=== PATIENT | male | born 1990 | race Caucasian/White ===

== ENCOUNTER 2017-02-24 13:53 | Inpatient (IN) | payer OTHER ==
--- NOTE | ~2017-02-24 | CT98 ---
[facility] A Service of [facility] RADIOLOGY TEXT RESULTS PATIENT: JAYDEN STEPHENS LOCATION: [address] : [birth year] UNIT #: [id number] AGE: [address]: Derrick Sol MD SEX: M ORDER DR: [id number] [facility] [address] [facility]. [place], [place] [address] [id number] I MR#: [id number] Acc #: [id number] NAME: JAYDEN STEPHENS : 1990 SEX: M STUDY DATE/TIME: 02/25/2017 12:12 UNIT: [facility] ROOM: [facility] STUDY DESCRIPTION: CT Lumbar Spine Wo Cont Attending Physician: Derrick Sol M.D. Ordering Physician: Cirstobal Vaughn M.D. Primary Care Physician: No Primary Care Physician MEDICAL IMAGING REPORT This report is preliminary unless electronic signature is present EXAM Lumbar spine CT 02/25 INDICATIONS Sepsis. Low back pain. Overdose on heroin. TECHNIQUE Axial noncontrast images were obtained through the lumbar spine. Multiplanar reformats were obtained. This CT exam was performed with one or more of the following radiation dose reduction techniques: automatic control, adjustment of mA and/or kV according to patient size, and iterative reconstruction. COMPARISON No comparison. FINDINGS The exam is quite degraded by the lack of IV contrast. No fracture or subluxation is seen. There are no erosive endplate changes seen to suggest diskitis. No intraspinal or definitive paraspinal fluid collections are identified. IMPRESSION Exam is degraded by the lack of IV contrast. However, the exam is within normal limits. No fractures are seen. No erosive changes are seen to suggest diskitis, and there are no definite adjacent fluid collections. Dictated by... Jim Aleman Jr., M.D. THIS IS AN ELECTRONICALLY VERIFIED REPORT Jim Aleman Jr., M.D. at 02/25/2017 3:55 PM RLK/rnr [facility] A Service of [facility] RADIOLOGY TEXT RESULTS PATIENT: JAYDEN STEPHENS LOCATION: [address] : [birth year] UNIT #: [id number] AGE: [address]: Derrick Sol MD SEX: M ORDER DR: TD: 02/25/2017 14:11 JOB #: [id number] MEDICAL IMAGING REPORT Page 1 of 1 COPY
--- NOTE | ~2017-02-24 | CR72 ---
[facility] A Service of [facility] RADIOLOGY TEXT RESULTS PATIENT: JAYDEN STEPHENS LOCATION: [facility] : [birth year] UNIT #: [id number] AGE: [address]: Tiara Kingston MD SEX: M ORDER DR: [id number] [facility] [address] [facility]. [place], [place] [address] [id number] E MR#: [id number] Acc #: [id number] NAME: JAYDEN STEPHENS : 1990 SEX: M STUDY DATE/TIME: 02/24/2017 16:51 UNIT: [facility] ROOM: STUDY DESCRIPTION: CR Chest Single View Portable Attending Physician: Tiara Kingston M.D. Ordering Physician: Tiara Kingston M.D. Primary Care Physician: No Primary Care Physician MEDICAL IMAGING REPORT This report is preliminary unless electronic signature is present EXAM Single view chest. HISTORY Cough, vomiting and headaches. FINDINGS Single portable AP view of the chest compared to CT abdomen and pelvis dated 02/24/2017. There are several cavitary nodules scattered throughout both lungs. These are most consistent septic emboli. There is no pneumothorax or pleural effusion. IMPRESSION Multiple cavitary nodules scattered throughout both lungs. This is most consistent with septic emboli. Please correlate with clinical symptoms. Dictated by... Loy Lara M.D. THIS IS AN ELECTRONICALLY VERIFIED REPORT Loy Lara M.D. at 02/24/2017 10:31 PM JOSSELINE/molly TD: 02/24/2017 22:08 JOB #: [id number] MEDICAL IMAGING REPORT Page 1 of 1 COPY
--- NOTE | ~2017-02-24 | CO ---
Unit #: [id number] #: [id number] Patient: FORTUNATO REDDY [id number] [address] [address] [id number] I MR#: [id number] NAME: FORTUNATO REDDY ROOM: [facility] Age: 26 Sex: M Admission Date: 02/24/2017 : 1990 Attending Physician: Derrick Sol M.D. Primary Care Physician: Maria Teresa Primary Care Physician Consultation Date: 02/25/2017 CONSULTATION REPORT REASON FOR CONSULT Renal insufficiency, acidosis. Thank you very much for asking me to see this patient in consultation. HISTORY OF PRESENT ILLNESS Mr. Fortunato Reddy is a 26-year-old male who apparently has had nausea, vomiting, fevers, joint pain x1 week. Presented here with low blood pressure, subsequently intubated. Workup showed probable septic emboli to the lungs. Echo this morning showed a large tricuspid vegetation. Patient already is growing out 2/2 gram-positive cocci in the blood. We were asked to see the patient secondary to increased creatinine of 1.6, decreased output, and acidosis. The patient has a history of polysubstance abuse and apparently IV heroin, although unsure of the exact amount. He currently is intubated on pressors, although blood pressure in the 120s. Batista catheter is in place with some mild increased urine output. PAST MEDICAL HISTORY 1. History of polysubstance abuse. 2. History of anxiety. ALLERGIES No known drug allergies. SOCIAL HISTORY Positive smoker. No alcohol apparently according to the chart and of course, positive heroin use. MEDICATIONS Medicines at home included lorazepam. Medicines currently include: 1. Vancomycin. 2. Propofol. 3. Zosyn. 4. Phenergan. 5. Solu-Cortef. 6. Lovenox. 7. Protonix. 8. He is on phenylephrine drip and he is on a bicarb drip currently. FAMILY HISTORY Noncontributory. Unit #: [id number] #: [id number] Patient: FORTUNATO REDDY PHYSICAL EXAMINATION GENERAL: Sedated. VITAL SIGNS: T-max is 99.9, pulse 81-125, blood pressure 70 to 121 over 30 to 70s. HEENT: Normocephalic and atraumatic. His pupils are equal and reactive to light. He has a little bit of sclerae edema. NECK: His neck is supple. No adenopathy. CARDIAC: He is without a rub. No S3 or S4. LUNGS: His lungs sound fairly clear anterior and laterally. ABDOMEN: Bowel sounds positive. Nontender, soft. No masses felt. No hepato-organomegaly noted. EXTREMITIES: He has no lower extremity swelling. His pulses are intact to upper and lower extremities now. JOINTS: No joint pain, joint swelling. SKIN: No acute rashes. NEUROLOGIC: Again, sedated. DIAGNOSTIC STUDIES LABORATORY: Last check showed an ABG of pH 7.293, pCO2 of 37, pO2 of 236. Sodium 137, potassium 3.6, chloride 108, bicarbonate 18, BUN 25, creatinine 1.6, glucose 74, calcium 7. Albumin 1.7. Increased liver function tests. Increased bilirubin. Lactic acid is 1.8. CPK is 11. Hemoglobin 11.8, platelet count is down to 43,000, white count is 28,3000. UA shows specific gravity of 1.022, 2-5 RBCs, 10-25 WBCs, 2+ bacteria. Blood cultures again 2/2 gram-positive cocci. IMAGING: Chest x-ray consistent with cavitary nodules. ASSESSMENT AND PLAN 1. Acute renal insufficiency: This is a gentleman who has acute renal failure, most likely related to acute tubular necrosis from hypoperfusion as well as from sepsis, endocarditis, etc. Certainly, I think he will probably worsen before he gets better. His blood pressure is improved now on pressors and IV fluids. Will continue for now. No indication for dialysis currently but if becomes significantly more acidotic or hyperkalemic or other issues with respiratory status, etc., will need to consider probably CRRT. For now, will hold off. Check labs later today. 2. Acidosis: Patient appears to have metabolic acidosis secondary to acute renal failure, sepsis, etc. Will adjust his bicarbonate drip to D5W with 3 amps of bicarb at 200 mL an hour. Will check again BMP later today and will continue to follow. 3. Tricuspid endocarditis, septic emboli, gram-positive cocci per infectious disease. 4. Respiratory failure. 5. Heroin abuser. Dictated by.Edyta Herr M.D. Peterson TD: 02/25/2017 15:04 JOB #: [id number] Unit #: [id number] #: [id number] Patient: FORTUNATO REDDY CONSULTATION REPORT Page 1 of 1 X Kolby Herr MD CONSULTATION REPORT
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
--- NOTE | ~2017-02-24 | CT4 ---
[facility] A Service of [facility] RADIOLOGY TEXT RESULTS PATIENT: JAYDEN STEPHENS [facility] [birth year] UNIT #: [id number] AGE: [address]: Derrick Sol MD SEX: M ORDER DR: [id number] [facility] [address] [facility]. [place], [place] [address] [id number] E MR#: [id number] Acc #: [id number] NAME: JAYDEN STEPHENS : 1990 SEX: M STUDY DATE/TIME: 02/24/2017 15:35 UNIT: PR[facility]ANK[facility] ROOM: STUDY DESCRIPTION: CT Abd and Pelv Wo Cont Attending Physician: Tiara Kingston M.D. Ordering Physician: Tiara Kingston M.D. Primary Care Physician: No Primary Care Physician MEDICAL IMAGING REPORT This report is preliminary unless electronic signature is present EXAM CT of the abdomen and pelvis, without contrast. HISTORY Vomiting and body aches for [address] images were obtained from the dome of the diaphragm through the symphysis pubis. No oral or intravenous contrast material was administered. This CT exam was performed with one or more of the following radiation dose reduction techniques: automatic exposure control, adjustment of mA and/or kV according to patient size, and iterative reconstruction. FINDINGS Patient is noted to have multiple cavitary nodules seen at the lung bases bilaterally. Their appearance is most characteristic of septic emboli. The patient has diffuse hepatic steatosis as well as hepatosplenomegaly. The liver measures up to 16.4 cm in craniocaudal dimensions. The spleen measures up to 14.4 cm in craniocaudal dimensions. The exam is degraded by the lack of intravenous and oral contrast material. The stomach and proximal small bowel appear unremarkable, as are the adrenal glands, pancreas, and kidneys. The gallbladder is not well seen and is probably contracted. I do not see any free fluid or adenopathy within the abdomen. There is no evidence of mechanical bowel obstruction. There is trace amount of free fluid seen within the pelvis, which certainly could be reactive. The urinary bladder is normal in appearance. The appendix is not definitively identified, but no dilated tubular structure or soft tissue stranding within the right lower quadrant to suggest acute appendicitis. Review of bony windows does not demonstrate any aggressive abnormalities. Patient does have postsurgical changes within the right femur. [facility] A Service of [facility] RADIOLOGY TEXT RESULTS PATIENT: JAYDEN STEPHENS LOCATION: [address] : [birth year] UNIT #: [id number] AGE: [address]: Derrick Sol MD SEX: M ORDER DR: IMPRESSION 1. Multiple cavitary nodules are noted at the lung bases bilaterally. The appearance is most in keeping with septic emboli. Single largest nodule measures up to 3.3 x 2.2 cm. 2. Hepatosplenomegaly. 3. Diffuse hepatic steatosis. 4. Trace free fluid identified within the pelvis, likely reactive. 5. The appendix is not definitively seen, but I do not see a dilated tubular structure or soft tissue stranding within the right lower quadrant to suggest acute appendicitis. 6. Findings were reviewed with Dr. Kingston in the Emergency Department at the time of this dictation. Dictated by... Sally Noe M.D. THIS IS AN ELECTRONICALLY VERIFIED REPORT Sally Noe M.D. at 02/26/2017 6:29 PM MARLYN/reji TD: 02/24/2017 19:22 JOB #: [id number] MEDICAL IMAGING REPORT Page 1 of 1 COPY
--- NOTE | ~2017-02-24 | CR72 ---
[facility] A Service of [facility] & [facility] RADIOLOGY TEXT RESULTS PATIENT: JAYDEN STEPHENS [facility]ATION: [facility] [birth year] UNIT #: [id number] AGE: [address]: Derrick Sol MD SEX: M ORDER DR: [id number] [address] [place], [place] [address] [id number] E MR#: [id number] Acc #: [id number] NAME: JAYDEN STEPHENS : 1990 SEX: M STUDY DATE/TIME: 02/24/2017 19:55 UNIT: [facility] ROOM: STUDY DESCRIPTION: CR Chest Single View Portable Attending Physician: Tiara Kingston M.D. Ordering Physician: Tiara Kingston M.D. Primary Care Physician: No Primary Care Physician MEDICAL IMAGING REPORT This report is preliminary unless electronic signature is present EXAM Single view chest INDICATIONS Central line placement. Shortness of air. FINDINGS Single portable AP view of the chest at 19:55 compared to 16:51. Endotracheal tube is 6 cm above the dylan. There is a right IJ central line with the tip over the SVC. No pneumothorax. Cavitary pulmonary nodules are identified in both lungs. IMPRESSION 1. Endotracheal tube 6 cm above the dylan. 2. Right IJ central line terminates over the SVC. No pneumothorax. Dictated by... Loy Lara M.D. THIS IS AN ELECTRONICALLY VERIFIED REPORT Loy Lara M.D. at 02/25/2017 3:05 PM JOSSELINE/molly TD: 02/25/2017 00:39 JOB #: [id number] MEDICAL IMAGING REPORT Page 1 of 1 COPY
--- NOTE | ~2017-02-24 | EKG ---
PATIENT: JAYDEN STEPHENS UNIT #: [id number] Ventricular Rate: 111 BPM Atrial Rate: 111 BPM P-R Interval: 140 ms QRS Duration: 92 ms Q-T Interval: 380 ms QTC Calculation(Bezet): 516 ms P Baltic: 71 degrees Calculated R Baltic: 81 degrees Calculated T Baltic: 37 degrees Diagnosis Line: Sinus tachycardia Diagnosis Line: Otherwise normal ECG Diagnosis Line: Diagnosis Line: Confirmed by MOJGAN GLORIA MD ([id number]) on 02/24/2017 Diagnosis Line: 11:43:11 PM INTERPRETING MD: FAIZAN JOINER
--- NOTE | ~2017-02-24 | CT57 ---
[facility] A Service of [facility] & [facility] RADIOLOGY TEXT RESULTS PATIENT: JAYDEN STEPHENS LOCATION: [address] : [birth year] UNIT #: [id number] AGE: [address]: Derrick Sol MD SEX: M ORDER DR: [id number] [facility] [address] [facility]. [place], [place] [address] [id number] I MR#: [id number] Acc #: [id number] NAME: JAYDEN STEPHENS : 1990 SEX: M STUDY DATE/TIME: 02/25/2017 12:09 UNIT: [facility] ROOM: [facility] STUDY DESCRIPTION: CT Chest Wo Cont Attending Physician: Derrick Sol M.D. Ordering Physician: Cristobal Vaughn M.D. Primary Care Physician: No Primary Care Physician MEDICAL IMAGING REPORT This report is preliminary unless electronic signature is present EXAM Chest CT, 02/25/2017. HISTORY Sepsis. Recent overdose on drugs. Upper and lower back pain. TECHNIQUE Axial images were obtained through the chest without contrast. Multiplanar reformats were obtained. This CT exam was performed with one or more of the following radiation dose reduction techniques: automatic exposure control, adjustment of mA and/or kV according to patient size, and iterative reconstruction. COMPARISON Comparison made with CT abdomen, 02/24/2017. FINDINGS Endotracheal tube is in good position. No pericardial effusion. There are small bilateral pleural effusions. No definite adenopathy. Right IJ line tip is in the SVC. Lung windows reveal numerous lesions bilaterally, most of which are cavitary. These are compatible with septic emboli. More confluent alveolar consolidation is noted in the lower lobes and suggests pneumonia. There are some secretions in the left main stem bronchus. The upper abdomen shows fatty infiltration of the liver. Gallbladder has an abnormal appearance, and I cannot exclude gallbladder wall edema. Follow-up with gallbladder ultrasound is recommended. IMPRESSION 1. Bilateral numerous septic emboli. 2. Small bilateral effusions. 3. Bilateral lower lobe consolidations which likely reflect pneumonia. 4. Abnormal appearance to the gallbladder, only partially visualized. I [facility] A Service of [facility] & [facility] RADIOLOGY TEXT RESULTS PATIENT: JAYDEN STEPHENS LOCATION: [address] : [birth year] UNIT #: [id number] AGE: [address]: Derrick Sol MD SEX: M ORDER DR: cannot exclude gallbladder wall edema, and I would recommend follow-up with gallbladder ultrasound. 5. Hepatic steatosis. Dictated by... Jim Aleman Jr., M.D. THIS IS AN ELECTRONICALLY VERIFIED REPORT Jim Aleman Jr., M.D. at 02/25/2017 3:55 PM MARSHA/reji TD: 02/25/2017 13:50 JOB #: [id number] MEDICAL IMAGING REPORT Page 1 of 1 COPY
--- NOTE | ~2017-02-24 | CT71 ---
[facility] A Service of [facility] RADIOLOGY TEXT RESULTS PATIENT: JAYDEN STEPHENS LOCATION: [address] : [birth year] UNIT #: [id number] AGE: [address]: Derrick Sol MD SEX: M ORDER DR: [id number] [facility] [address] [facility]. [place], [place] [address] [id number] I MR#: [id number] Acc #: [id number] NAME: JAYDEN STEPHENS : 1990 SEX: M STUDY DATE/TIME: 02/25/2017 12:06 UNIT: [facility] ROOM: [facility] STUDY DESCRIPTION: CT Head Wo Contrast Attending Physician: Derrick Sol M.D. Ordering Physician: Cristobal Vaughn M.D. Primary Care Physician: No Primary Care Physician MEDICAL IMAGING REPORT This report is preliminary unless electronic signature is present EXAM Head CT without contrast. HISTORY Confusion following an overdose with respiratory failure. Patient admitted on 02/24/2017. TECHNIQUE Axial images were obtained without contrast. This CT exam was performed with one or more of the following radiation dose reduction techniques: automatic exposure control, adjustment of mA and/or kV according to patient size, and iterative reconstruction. FINDINGS Ventricular size and configuration are normal. There is no evidence of acute infarct or hemorrhage. There are no extra-axial fluid collections. No mass lesion or mass effect is seen. There are no skull fractures. IMPRESSION Normal noncontrast head CT. Dictated by... Jim Woody M.D. THIS IS AN ELECTRONICALLY VERIFIED REPORT Jim Woody M.D. at 02/25/2017 4:57 PM AMBROCIO/reji TD: 02/25/2017 13:48 JOB #: [id number] [facility] A Service of [facility] & [facility] RADIOLOGY TEXT RESULTS PATIENT: JAYDEN STEPHENS LOCATION: [address] : [birth year] UNIT #: [id number] AGE: [address]: Derrick Sol MD SEX: M ORDER DR: MEDICAL IMAGING REPORT Page 1 of 1 COPY
--- NOTE | ~2017-02-24 | CO ---
Unit #: [id number] #: [id number] Patient: JAYDEN STEPHENS [id number] [address] [place], [place] [address] [id number] E MR#: [id number] NAME: JAYDEN STEPHENS ROOM: Age: 26 Sex: M Admission Date: 02/24/2017 : 1990 Attending Physician: Tiara Kingston M.D. Primary Care Physician: No Primary Care Physician CONSULTATION REPORT REASON FOR CONSULTATION Critical care management. CHIEF COMPLAINT Septic shock. HISTORY OF PRESENT ILLNESS The patient is a 26-year-old male with past medical history of drug abuse and anxiety and right femur surgery, who presented with a complaint of nausea, vomiting, abdominal pain, is an IV drug user and was found to have septic emboli on CT abdomen and pelvis. I am seeing the patient at the bedside currently complaining of shortness of breath, denies any other complaint. REVIEW OF SYSTEMS Positive for pallor. No edema. No cyanosis. No jaundice. The rest is as per history of present illness. The rest of 12-point review of system has been reviewed and is negative. PAST MEDICAL HISTORY As described above. SOCIAL HISTORY IV drug user. MEDICATION Lorazepam. PHYSICAL EXAMINATION VITAL SIGNS: Temperature is currently 97, pulse is 115, blood pressure is 74/48. NEUROLOGICAL: Awake, alert, follows commands. CVS: S1 plus S2. RESPIRATION: Bilateral mild rhonchi. GI: Nontender, soft, bowel sounds positive. EXTREMITIES: No edema. SKIN: No rashes. No ulcer. LYMPHATIC: No lymphadenopathy. DIAGNOSTIC STUDIES LABORATORY: Labs have been reviewed. His creatinine is 1.6, sodium 135, potassium is 3.4, chloride is 97, bicarb is 26. His total bilirubin is 5.5 and his AST is 140, ALT is 141 and his lipase is 10, his troponin is Unit #: [id number] #: [id number] Patient: JAYDEN STEPHENS 9.72 and his white count is 17, hemoglobin 12, hematocrit 36, platelet count is 62. His drug screen is pending. IMAGING: Imaging has been reviewed. ASSESSMENT 1. Septic shock and septic emboli. 2. Intravenous drug user. 3. Respiratory failure. 4. Elevated troponin. 5. Likely infective endocarditis. PLAN Plan is to continue oxygen, bronchodilator, aggressive IV hydration, broad-spectrum IV antibiotics, GI and DVT prophylaxis. Patient will be closely monitored. Please see orders for detailed plan. I recommend Infectious Disease consultation as well. Cardiology has been consulted. Will request 2D echo, follow troponin and will defer anticoagulation to Cardiology. Please see orders for detailed plan. Patient is critically ill and patient may not survive this hospitalization. Prognosis is very poor, will discuss with the family. Total critical care time 95 minutes. Dictated by... Fabian Mcneal/deep TD: 02/24/2017 21:23 JOB #: [id number] CONSULTATION REPORT Page 1 of 1 X Cristobal Vaughn MD CONSULTATION REPORT
--- NOTE | ~2017-02-24 | HP ---
Unit #: [id number] #: [id number] Patient: JAYDEN STEPHENS [id number] [address] [address] [id number] E MR#: [id number] NAME: JAYDEN STEPHENS ROOM: Age: 26 Sex: M Admission Date: 02/24/2017 : 1990 Attending Physician: Tiara Kingston M.D. HISTORY AND PHYSICAL CHIEF COMPLAINT Body aches and vomiting x1 week. HISTORY OF PRESENT ILLNESS The patient is a 26-year-old male who has been having body aches, nausea, and vomiting for the past one week. He admits to using IV heroin about a week ago. He states that that was his first time. Patient's grandmother was present while I was taking the history. Patient admits to disclosing this information to his mother and his grandmother about 24 hours ago. He denies any chest pain, and he denies any blurry vision. He just feels weak all over and states his joints ache all over. He has been having chills for the last 24 hours; however, no temperature specifically was taken. Patient denies any blotchy lesions of his skin, denies any blurry vision, and denies any dysuria or frequency. PAST MEDICAL HISTORY Anxiety. PAST SURGICAL HISTORY Right femur surgery in the past. MEDICATIONS Lorazepam 0.5 mg p.o. q.i.d. p.r.n. He sees Dr. Hebert as a PCP. SOCIAL HISTORY He smokes about a half a pack of cigarettes a day. He denies any alcohol use and admits to recreational drug use with IV heroin. FAMILY HISTORY Noncontributory to presenting complaint. PHYSICAL EXAMINATION GENERAL: On examination, patient was acutely ill. VITAL SIGNS: Blood pressure 82/61, pulse 110, respiratory rate 15, temperature 97.5, and saturating 96% on two liters of oxygen. HEENT: Pupils were equal and reactive to light and accommodation. NECK: Supple without thyromegaly. CARDIOVASCULAR: Tachycardic. I could not appreciate any murmurs at this time. ABDOMEN: Full. Moved with respiration. Right upper quadrant and left upper quadrant tenderness and epigastric tenderness as well. No rebound. RECTAL: Deferred. CENTRAL NERVOUS SYSTEM: Alert and oriented x3. Moves all his limbs spontaneously. Cranial nerves II-XII grossly intact. Unit #: [id number] #: [id number] Patient: JAYDEN STEPHENS EXTREMITIES: Skin cool. No purpura identified. LYMPHATICS: No enlarged peripheral lymphadenopathy that I could appreciate. DIAGNOSTIC STUDIES LABORATORY: Chemistries with glucose of 82, BUN and creatinine 23 and 1.6, sodium and potassium 135 and 3.4, chloride and bicarbonate 97 and 26, respectively, AST and ALT 140 and 141, and alkaline phosphatase of 163. Lipase is 10. CK is 11. Troponin of 9.72. CBC with WBC of 17.4, hemoglobin and hematocrit 12.2 and 36.8, platelet count of 62,000, neutrophil count of 94.7, and lymphocytes of 2.4. He had 24 bands, lymphocytes of 3.0, and monocytes 2.0. IMAGING: Chest x-ray showed multiple cavitary lesions in keeping with septic emboli. He had a CT scan of his abdomen and pelvis which showed multiple cavitary lung nodules in keeping with septic emboli bilaterally. He had hepatosplenomegaly, as well as hepatic steatosis. He also had free fluid in his pelvis which was most likely reactive. ASSESSMENT AND PLAN 1. Sepsis, questionable source. 2. Elevated troponins. Etiology is questionable at this time. EKG shows sinus tachycardia with no ST changes at this time. His history of IV drug use about a week ago preceding his symptoms heightens the possibility of possibly myocarditis or endocarditis at this point. Will get two sets of cardiac enzymes and consult Cardiology. Will put him on IV antibiotics and repeat cardiac enzymes. 3. Hypertension. Will admit patient to the intensive care unit. He is on Zosyn and vancomycin IV. He will be given fluids of normal saline at 150 mL/hour. 4. Anxiety. 5. Deep venous thrombosis prophylaxis. Put him on Lovenox 40 mg subcutaneous daily. 6. Gastrointestinal prophylaxis. Put him on Protonix 40 mg IV daily. 7. I will put in a consult for Cardiology, Dr. Hidalgo, for elevated troponins. Patient most likely will need a transesophageal echocardiogram. Will also put in a consult for Dr. Vaughn, floor steward/stewardess. Would add CRP and ESR to blood in lab if not already done. Repeat EKG in the morning. 8. Tylenol 650 mg p.o. q.4 hours p.r.n. temperature. 9. Code status is Full Code. Critical care time spent excluding procedures is about 50 minutes. Dictated by Fabian Guajardo TD: 02/24/2017 20:19 JOB #: [id number] Unit #: [id number] #: [id number] Patient: JAYDEN STEPHENS HISTORY AND PHYSICAL Page 1 of 1 X Derrick Sol MD X HISTORY AND PHYSICAL
--- NOTE | ~2017-02-24 | CO ---
Unit #: [id number] #: [id number] Patient: JAYDEN STEPHENS [id number] [address] [place], [place] [address] [id number] Karri MR#: [id number] NAME: JAYDEN STEPHENS ROOM: [facility] Age: 26 Sex: M Admission Date: 02/25/2017 : 1990 Attending Physician: Derrick Sol M.D. Primary Care Physician: No Primary Care Physician Consultation Date: 02/25/2017 CONSULTATION REPORT REASON FOR CONSULTATION Endocarditis and antibiotic management. HISTORY OF PRESENT ILLNESS This is a 26-year-old male who is currently on the ventilator and unable to provide any history. The chart has been reviewed. I have discussed with cardiology as well. It appears that patient has had recent complaints of flu-like symptoms with fever, chills, nausea, vomiting and abdominal pain as well as having some back pain and limping at home. The patient did require intubation. He also is on a Kwasi-Synephrine drip and he just recently had a 2D echo which showed tricuspid valve large, friable, vegetation that prolapsed into the right ventricle and right atrium. The patient has been on vancomycin and Zosyn and ID was asked to evaluate for further management. The patient is currently awaiting going for a CT scan of his chest and his head to rule out septic emboli. PAST MEDICAL HISTORY Includes: 1. Right femur surgery; however, details are unknown to me at this time. 2. Anxiety. ALLERGIES No known allergies. MEDICATIONS Vancomycin and Zosyn and Kwasi-Synephrine drip. For other medications, please refer to patient's MAR. SOCIAL HISTORY Positive IV drug use with heroin, otherwise unknown. REVIEW OF SYSTEMS Unable to obtain as patient is currently on the ventilator. PHYSICAL EXAMINATION VITAL SIGNS: Temperature 99.9, pulse is 86, blood pressure is 121/89, respiratory rate is 22. GENERAL: This is a no apparent distress male who is currently resting on the ventilator. HEENT/NECK: Pupils are sluggish. His neck is supple. CARDIOVASCULAR: S1, S2 with murmur appreciated. PULMONARY: Diminished in the bases. ABDOMEN: Hypoactive bowel sounds. Soft and nontender. EXTREMITIES: No clubbing or cyanosis. No significant edema noted. He Unit #: [id number] #: [id number] Patient: JAYDEN STEPHENS has an IJ line in his neck without any evidence of cellulitis. DIAGNOSTIC STUDIES LABORATORY: BUN 25, creatinine 1.6, sodium 137, potassium 3.6, chloride 108, CO2 18, bilirubin is 5.2, AST is 109, ALT is 108. CK total is 15, lactic acid 1.8, CRP is 19.9. WBC 28,000, hemoglobin 11.8, hematocrit 36.2, platelets 43. 17% bands. Sed rate is 23. Influenzae screen is negative. Tox screen shows positive for benzos, amphetamines, opiates and tricyclic antidepressants. Urinalysis shows WBCs of 10-25 with positive nitrites. Blood cultures - two of two Gram-positive cocci in clusters. Urine culture - no growth at 24 hours. IMAGIND echocardiogram currently shows large tricuspid valve vegetation with moderate tricuspid regurg that prolapses into the right atrium and right ventricle and is friable. I was told there is a CT scan of the abdomen; however, I do not see it currently in [facility] and there is some question of septic emboli. The details are unknown to me at this time. IMPRESSION 26-year-old male with intravenous drug abuse, now with multi-organ failure, who remains on the ventilator and Kwasi-Synephrine drip. Patient has large tricuspid valve vegetation that is friable and extends into the right atrium and right ventricle with associated renal failure, liver failure, thrombocytopenia related to sepsis and leukocytosis. At this time, cultures show Gram-positive cocci in the blood and suspect this is most likely a Staph organism. Will continue vancomycin and Zosyn at this time but would like to give gentamicin x1. Will repeat blood cultures x2 30 minutes apart. In addition to a CT scan of his chest and had that he is going for today, will also evaluate his hip and his spine due to complaints of pain when he was speaking to this mother. Will also check an HIV panel an will check lab work in the morning. Patient is in extremely critical condition. Will need to discuss further with cardiology whether patient needs to be transferred for cardiovascular evaluation. This case will be discussed in detail with Dr. Ozzy Gomez. Thank you for allowing us to participate in the care of this patient and further recommendations to follow pending patient's clinical course. Dictated by... Ginette L. Dm Ramsey M.D. SLS/adrien TD: 02/25/2017 11:41 JOB #: [id number] Unit #: [id number] #: [id number] Patient: JAYDEN STEPHENS CONSULTATION REPORT Page 1 of 1 X X CONSULTATION REPORT
--- NOTE | ~2017-02-24 | CT122 ---
[facility] A Service of [facility] RADIOLOGY TEXT RESULTS PATIENT: JAYDEN STEPHENS LOCATION: [address] : [birth year] UNIT #: [id number] AGE: [address]: Derrick Sol MD SEX: M ORDER DR: [id number] [facility] [address] [facility]. [place], [place] [address] [id number] I MR#: [id number] #: [id number] NAME: JAYDEN STEPHENS : 1990 SEX: M STUDY DATE/TIME: 02/25/2017 12:36 UNIT: [facility] ROOM: [facility] STUDY DESCRIPTION: CT Thoracic Spine Wo Cont Attending Physician: Derrick Sol M.D. Ordering Physician: Cristobal Vaughn M.D. Primary Care Physician: Primary Care Physician No MEDICAL IMAGING REPORT This report is preliminary unless electronic signature is present EXAM Thoracic spine CT, 02/25 INDICATION Upper back pain. Patient had overdose and has respiratory failure and sepsis. TECHNIQUE Axial noncontrast images were obtained through the thoracic spine. Multiplanar reformats were obtained. This CT exam was performed with one or more of the following radiation dose reduction techniques: automatic exposure control, adjustment of mA and/or kV according to patient size, and iterative reconstruction. COMPARISON No comparison. FINDINGS This exam is quite degraded by the lack of IV contrast. For a description of findings in the lungs, please see the chest CT report dictated separately. No fracture or malalignment is identified. The intervertebral discs are grossly normal. No endplate erosive changes are seen at any level. No definite paraspinal or intraspinal fluid collections are seen. IMPRESSION 1. Degraded exam due to the lack of IV contrast. However, there is no fracture or malalignment. No erosive changes are noted in the endplates to suggest discitis. No fluid collections are seen. 2. Septic emboli in the lungs. Please see the chest CT report dictated separately. [facility] A Service [facility] RADIOLOGY TEXT RESULTS PATIENT: JAYDEN STEPHENS LOCATION: [facility] CICCU2-04 : [birth year] UNIT #: [id number] AGE: [address]: Derrick Sol MD SEX: M ORDER DR: Dictated by... Jim Aleman Jr., M.D. THIS IS AN ELECTRONICALLY VERIFIED REPORT Jim Aleman Jr., M.D. at 02/25/2017 3:55 PM AMRSHA/baltazar TD: 02/25/2017 14:18 JOB #: [id number] MEDICAL IMAGING REPORT Page 1 of 1 COPY
--- NOTE | ~2017-02-24 | OR ---
Unit #: [id number] #: [id number] Patient: JAYDEN STEPHENS [id number] [address] [address] [id number] E MR#: [id number] NAME: JAYDEN STEPHENS ROOM: Date of Procedure: 02/24/2017 Admission Date: 02/24/2017 Surgeon: Cristobal Vaughn M.D. : 1990 Attending Physician: Tiara Kingston M.D. Primary Care Physician: Primary Care Physician No PROCEDURE OPERATIVE NOTE PROCEDURE PERFORMED Endotracheal intubation INDICATION Respiratory failure. PREPROCEDURE DIAGNOSIS Respiratory failure. POSTPROCEDURE DIAGNOSIS Respiratory failure. DETAIL OF PROCEDURE After placing patient in appropriate position, and we gave 10 mg of etomidate and 4 mg of Versed, under direct visualization of vocal cord, a size 8 endotracheal tube was passed through the vocal cords and good color change on the end-tidal CO2 monitor. No complication happened. The patient tolerated the procedure very well. Dictated by... Fabian Mcneal/sammy TD: 02/24/2017 21:23 JOB #: [id number] PROCEDURE OPERATIVE NOTE Page 1 of 1 X Cristobal Vaughn MD X PROCEDURE OPERATIVE NOTE
--- NOTE | ~2017-02-24 | EKG ---
PATIENT: JAYDEN STEPHENS UNIT #: [id number] Ventricular Rate: 125 BPM Atrial Rate: 125 BPM P-R Interval: 116 ms QRS Duration: 90 ms Q-T Interval: 348 ms QTC Calculation(Bezet): 502 ms P [place]: 74 degrees Calculated R [place]: 86 degrees Calculated T [place]: 37 degrees Diagnosis Line: Sinus tachycardia Diagnosis Line: Otherwise normal ECG Diagnosis Line: When compared with ECG of 24-FEB-2017 18:02, Diagnosis Line: (unconfirmed) Diagnosis Line: Nonspecific T wave abnormality, worse in Inferior Diagnosis Line: leads Diagnosis Line: Confirmed by MOJGAN GLORIA MD ([id number]) on 02/24/2017 Diagnosis Line: 11:44:06 PM INTERPRETING MD: FAIZAN JOINER
--- NOTE | ~2017-02-24 | CR72 ---
[facility] A Service of [facility] & [facility] RADIOLOGY TEXT RESULTS PATIENT: JAYDEN STEPHENS LOCATION: [address]27 : [birth year] UNIT #: [id number] AGE: [address]: Derrick Sol MD SEX: M ORDER DR: [id number] [facility] [address] [facility]. [place], [place] [address] [id number] I MR#: [id number] Acc #: [id number] NAME: JAYDEN STEPHENS : 1990 SEX: M STUDY DATE/TIME: 02/25/2017 4:08 UNIT: [facility] ROOM: [facility] STUDY DESCRIPTION: CR Chest Single View Portable Attending Physician: Bridgette Michael M.D. Ordering Physician: Cristobal Vaughn M.D. Primary Care Physician: Primary Care Physician No MEDICAL IMAGING REPORT This report is preliminary unless electronic signature is present EXAM Portable chest INDICATIONS Respiratory failure follow up. PROCEDURE Frontal view chest. COMPARISON 02/24/2017 FINDINGS Support and monitoring devices unchanged. Opacities in both lungs are stable. No visible pneumothorax. IMPRESSION Stable Dictated by... Gilles Martines M.D. THIS IS AN ELECTRONICALLY VERIFIED REPORT Gilles Martines M.D. at 02/25/2017 10:24 PM ELLEN/pat TD: 02/25/2017 06:12 JOB #: [id number] MEDICAL IMAGING REPORT Page 1 of 1 COPY
--- NOTE | ~2017-02-24 | A ---
[facility] Nutrition Therapy DATE: 02/25/17 Patient: JAYDEN STEPHENS Physician: TAJ Address: [address] Room/Bed: [address], Zip: [place] [address] Admit Date: 02/25/17 Date of : [birth year] Height: 6 1 Weight: 143 65 NUTRITIONAL ASSESSMENT: REASON: NPO in ICU, low BMI 26 yo male admitted for OD, confusion, resp. failure w/ vomiting and body aches x 1 wk PMH: Anxiety, tobacco abuse, drug abuse Anthropometrics: Ht: 6'1" Wt: 65 kg (143#) BMI: 18.9 IBW: 184#, 78% IBW Labs: BUN 25, Creat 1.6, Ca++ 7.0, Alb 1.7, AST 109, ALT 108, Lip 10, GFR 59.4 Meds: Versed, Propofol @ 19.5 mL/hr, NaCl, Zofran, Protonix I/O & Bowel function: 6756/130, last BM unknown Skin Integrity: Puncture site (R groin), tattoos Estimated Nutrition Needs: 5480-1330 kcal (30-35 kcal/kg) 98-130 g protein (1.5-2.0 g/kg) Assessment: Chart reviewed, events noted. Per chart, pt admitted for heroin OD with confusion, resp. failure, as well as vomiting and body aches x 1 week. Pt is currently intubated in ICU. Per RN, pt has severe vegetation. Pt is receiving propofol @ 19.5 mL/hr, which is providing 515 kcal of lipids. See recommendations below. Dx: Inadequate protein-energy intake RT current clinical condition, PMH AEB 18.9 BMI, 17.9% IBW, pt intubated. Intervention: 1. Currently NPO 2. Enteral nutrition support Monitoring, Evaluation and Goals: 1. Enteral nutrition; provide >80% of estimated needs and goal volume x 24 hrs 2. Weight; prevent unintentional weight loss, promote gradual weight gain 3. Labs; WNL Recommendations: 1. Once medically feasible and while propofol is running, initiate enteral nutrition with Jevity 1.5 @ 20 mL/hr + 30 mL prostat BID, advance 10 mL q 6 hrs to goal rate of 45 mL/hr. This will provide: 2335 kcal/ 99 g protein/ 821 mL free H2O. [facility] Nutrition Therapy DATE: 02/25/17 Patient: JAYDEN STEPHENS Physician: TAJ Address: [address] Room/Bed: [address], Zip: [place] [address] Admit Date: 02/25/17 Date of : [birth year] Height: 6 1 Weight: 143 65 2. Once medically feasible and if propofol is discontinued, initiate enteral nutrition with Jevity 1.5 @ 20 mL/hr + 30 mL prostat daily, advance 10 mL q 6 hrs to goal rate of 55 mL/hr + 30 mL prostat daily. This will provide: 2080 kcal/ 99 g protein/ 1003 mL free H2O. 3. Once pt extubated. advance diet per [employer] + regular diet Pt is at a severe nutritional risk. RD will f/u per protocol. Respectfully, Marcelle Ryan, Director Of Acquisitions Malcolm Reynoso MS, RD, LD Food and Nutritional Services [facility] cc: client file
--- NOTE | ~2017-02-24 | US88 ---
[facility] A Service of [facility] & [facility] RADIOLOGY TEXT RESULTS PATIENT: JAYDEN STEPHENS LOCATION: [address] : [birth year] UNIT #: [id number] AGE: [address]: Derrick Sol MD SEX: M ORDER DR: [id number] [facility] [address] [facility]. [place], [place] [address] [id number] I MR#: [id number] Acc #: [id number] NAME: JAYDEN STEPHENS : 1990 SEX: M STUDY DATE/TIME: 02/25/2017 9:41 UNIT: [facility] ROOM: [facility] STUDY DESCRIPTION: US Liver or Hepatic Attending Physician: Derrick Sol M.D. Ordering Physician: Cristobal Vaughn M.D. Primary Care Physician: Primary Care Physician No MEDICAL IMAGING REPORT This report is preliminary unless electronic signature is present EXAM Liver ultrasound 02/25/2017 HISTORY Abnormally elevated liver enzymes on 02/24/2017. Vomiting and body aches since 02/22/2017. FINDINGS The liver demonstrates an increase in echotexture with attenuation of the ultrasound beam characteristic of fatty infiltration. No cystic or solid mass lesions were seen in the liver. The intra and extrahepatic bile ducts are not dilated. The gallbladder is markedly abnormal. There is a diffusely thickened gallbladder wall. The gallbladder wall may be edematous. There is no evidence of cholelithiasis. I cannot exclude acalculous cholecystitis on the basis of this examination. Consider correlation with HIDA scan. The common duct measured 5 mm. The pancreas and right kidney are normal. IMPRESSION 1. The gallbladder is markedly abnormal. While there is no evidence of cholelithiasis the gallbladder wall is markedly thickened and possibly edematous. I cannot exclude acalculous cholecystitis on the basis of this examination. Consider correlation with HIDA scan. 2. Fatty infiltration of the liver. STAT * RESULT Dictated by... Brian Hernandez M.D. THIS IS AN ELECTRONICALLY VERIFIED REPORT [facility] A Service of [facility] & [facility] RADIOLOGY TEXT RESULTS PATIENT: JAYDEN STEPHENS LOCATION: [address] : [birth year] UNIT #: [id number] AGE: [address]: Derrick Sol MD SEX: M ORDER DR: Brian Hernandez M.D. at 02/26/2017 8:07 AM MERE/aura TD: 02/25/2017 15:22 JOB #: [id number] MEDICAL IMAGING REPORT Page 1 of 1 COPY
--- NOTE | ~2017-02-24 | CT107 ---
[facility] A Service of [facility] RADIOLOGY TEXT RESULTS PATIENT: JAYDEN STEPHENS [address]ATION: [address] : [birth year] UNIT #: [id number] AGE: [address]: Derrick Sol MD SEX: M ORDER DR: [id number] [facility] [address] [facility]. [place], [place] [address] [id number] I MR#: [id number] Acc #: [id number] NAME: JAYDEN STEPHENS : 1990 SEX: M STUDY DATE/TIME: 02/25/2017 12:15 UNIT: [facility] ROOM: [facility] STUDY DESCRIPTION: CT Pelvis Wo Cont Attending Physician: Derrick Sol M.D. Ordering Physician: Cristobal Vaughn M.D. Primary Care Physician: No Primary Care Physician MEDICAL IMAGING REPORT This report is preliminary unless electronic signature is present EXAM CT pelvis 02/25 INDICATIONS Sepsis. Bilateral hip pain. IV drug abuser. Patient is status post overdose. TECHNIQUE Axial images were obtained through the pelvis without contrast. Multiplanar reformats were obtained. This CT exam was performed with one or more of the following radiation dose reduction techniques: automatic control, adjustment of mA and/or kV according to patient size, and iterative reconstruction. COMPARISON No comparison. FINDINGS The exam is degraded by the lack of IV contrast. Soft tissue windows demonstrate free fluid in the pelvis. There is anasarca. There is an intramedullary laverne in the right femur. No definite joint effusion in either hip. There are no clear adjacent fluid collections. There are no fractures. No erosive changes are identified on the exam to suggest osteomyelitis. IMPRESSION Negative CT of the pelvis and hips. No fractures are seen. There is no evidence of a hip joint effusion on either side, and there is nothing to suggest osteomyelitis. Note is made of anasarca with some free fluid in the pelvis. Dictated by... Jim Aleman Jr., M.D. [facility] A Service of [facility] RADIOLOGY TEXT RESULTS PATIENT: JAYDEN STEPHENS LOCATION: [facility] : [birth year] UNIT #: [id number] AGE: [address]: Derrick Sol MD SEX: M ORDER DR: THIS IS AN ELECTRONICALLY VERIFIED REPORT Jim Aleman Jr., M.D. at 02/26/2017 6:09 AM MARSHA/keven TD: 02/25/2017 15:55 JOB #: [id number] MEDICAL IMAGING REPORT Page 1 of 1 COPY
--- NOTE | ~2017-02-24 | OR ---
Unit #: [id number] #: [id number] Patient: JAYDEN STEPHENS [id number] [address] [address] [id number] E MR#: [id number] NAME: JAYDEN STEPHENS ROOM: Date of Procedure: 02/24/2017 Admission Date: 02/24/2017 Surgeon: Cristobal Vaughn M.D. : 1990 Attending Physician: Tiara Kingston M.D. Primary Care Physician: No Primary Care Physician PROCEDURE OPERATIVE NOTE PROCEDURE PERFORMED Central venous catheter placement INDICATION Shock. PREPPOCEDURE DIAGNOSIS Shock. POST PROCEDURE DIAGNOSIS Shock. DETAILS OF THE PROCEDURE After placing patient in a proper position and using all aseptic technique, under ultrasound guidance a triple lumen central venous catheter placed in a right internal jugular vein. Guidewire was removed in total. All three ports were flushed and working and no complication happened. Line was secured with two interrupted sutures in place. Patient tolerated the procedure very well. No complication happened. Dictated by... Fabian Mcneal/deep TD: 02/24/2017 21:15 JOB #: [id number] PROCEDURE OPERATIVE NOTE Page 1 of 1 X Cristobal Vaughn MD PROCEDURE OPERATIVE NOTE
--- NOTE | ~2017-02-24 | DS ---
Unit #: [id number] #: [id number] Patient: JAYDEN STEPHENS [id number] [facility] [address] [facility]. [place], [place] [address] [id number] I MR#: [id number] NAME: JAYDEN STEPHENS ROOM: [facility] Age: 26 Sex: M Admission Date: 02/24/2017 : 1990 Discharge Date: 02/25/2017 Attending Physician: Derrick Sol M.D. Primary Care Physician: No Primary Care Physician DISCHARGE SUMMARY FINAL DIAGNOSES 1. 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 2. Sepsis. SECONDARY DIAGNOSIS Tobaccoism. CONSULTS 1. Dr. Gomez, infectious disease. 2. Dr. Hidalgo, cardiology. 3. Dr. Matthew Herr, nephrology. 4. Dr. Vaughn, strap stitcher. HOSPITAL COURSE Patient is a pleasant 26-year-old gentleman who appears to be an IV drug abuser who did some drugs about a week prior to presentation. He presented with weakness and malaise and was hypotensive in the emergency room and on evaluation in the emergency room he was noted to be septic with septic emboli in his lungs on chest x-ray and CT. He also had an elevated troponin of 9.72 and a slight murmur. He was started on respiratory antibiotic, IV Zosyn and IV vancomycin and he ended up being intubated as he was hypotensive. 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 On consultation with Infectious Disease the recommendation was that patient would need surgical intervention given his status. I put a call through to [facility]. I did speak with the Fellow hvac refrigeration technician in the medical ICU at [facility] who accepted the patient. Dr. Lewis, Cardiothoracic Surgery, is also going to be notified of the patient's arrival. The patient was managed by [facility], Dr. Hidalgo, while he was here and they would also be consulted to follow patient while at [facility]. On transfer out of the ICU patient will be transitioned to the hospital group. TRANSFER MEDICATIONS Medications on transfer include: 1. Combivent 3 mL inhalation q.4 h. 2. Solu-Cortef 100 mg IV q.8 h. 3. Tylenol 650 mg per rectum q.4 h. p.r.n. temperature. 4. Zofran 4 mg q.6 h. p.r.n. nausea. 5. Protonix 40 mg IV daily. 6. Vancomycin 1 g q.24 h. 7. He is on propofol for sedation. Unit #: [id number] #: [id number] Patient: JAYDEN STEPHENS 8. He is on midazolam for sedation. 9. He is on Zosyn 3.375 g q.8 h. 10. He is on phenylephrine for pressure support. 11. Sodium bicarb q.5 h. CONDITION ON DISCHARGE He will be transferred in stable condition on the ventilator. Time spent coordinating discharge is about 45 minutes. Dictated by... Fabian Guajardo/deep TD: 02/25/2017 17:20 JOB #: [id number] DISCHARGE SUMMARY Page 1 of 1 X Derrick Sol MD X DISCHARGE SUMMARY
[2017-02-24 14:17] LABS: BASOPHIL# 0.1 X10e3 (0-0.3); BASOPHIL% 0.3 % (0-2.5); DIFF IND YES; EOSINOPHIL# 0.1 X10e3 (0-0.7); EOSINOPHIL% 0.4 % (0.0-7.0); HEMATOCRIT 36.8 % (38.0-50.0); HEMOGLOBIN 12.2 gm/dL (13.0-16.0); LYMPHOCYTE# 0.4 X10e3 (1.0-3.5); LYMPHOCYTE% 2.4 % (17.0-45.0); MEAN CORPUSCULAR HEMOGLOBIN 29.3 PG (28-34); MEAN CORPUSCULAR HGB CONC 33.3 g/dL (30-36); MEAN PLATELET VOLUME 9.1 FL (6.5-11.5); MONOCYTE# 0.4 X10e3 (0-1.0); MONOCYTE% 2.2 % (3.0-12.0); NEUTROPHIL# 16.5 X10e3 (1.5-7.1); NEUTROPHIL% 94.7 % (40-75); PLATELET COUNT 62 X10e3 (140-420); RED BLOOD COUNT 4.18 X10e (3.90-5.60); RED CELL DISTRIBUTION WIDTH 13.6 % (11.0-15.5); WHITE BLOOD COUNT 17.4 X10e3 (4.0-10.5)
[2017-02-24 14:27] LABS: INFLUENZA A NEG (NEG); INFLUENZA B NEG (NEG)
[2017-02-24 14:37] LABS: ALBUMIN SERUM 2.1 g/dL (3.5-5.0); BILIRUBIN, DIRECT 3.9 mg/dL (0.0-0.2); BILIRUBIN,INDIRECT 1.6 mg/dL (0.0-0.9); BILIRUBIN,TOTAL 5.5 mg/dL (0.2-2.0); BUN/CREATININE RATIO 14.37; CALCIUM SERUM 8.3 mg/dL (8.4-10.2); CREATININE SERUM 1.6 mg/dL (0.6-1.4); GLOM FILT RATE Estimated 59.4 mL/min (>60); POTASSIUM 3.4 mmol/L (3.5-5.1); PROTEIN TOTAL SERUM 5.8 g/dL (6.0-8.3)
[2017-02-24 14:56] LABS: PLATELET ESTIMATE DECREASED (NORMAL)
[2017-02-24 14:57] LABS: ACANTHOCYTES PRESENT
[2017-02-24] MEDS ORDERED: ATIVAN0.5 MG PO (16:51)
[2017-02-24 16:52] LABS: ARTERIAL BLD GAS O2 SATURATION 81.9 % (90.0-100.0); ARTERIAL BLOOD GAS CARBOXY HB 1.2 %sat (0.0-9.0); ARTERIAL BLOOD GAS HCO3 26.4 mmol/L; ARTERIAL BLOOD GAS MET HB 0.9 %sat (0.0-2.0); ARTERIAL BLOOD GAS PCO2 39.4 mmHg (35.0-45.0); ARTERIAL BLOOD GAS pH 7.433 (7.350-7.450)
[2017-02-24 17:04] LABS: ARTERIAL BLOOD GAS DELIVERY RA; ARTERIAL BLOOD GAS PO2 46.8 mmHg (80.0-100); ARTERIAL DRAW? NO
[2017-02-24 19:11] LABS: CK TOTAL 9 IU/L (36-174)
[2017-02-24 20:07] LABS: BASOPHIL% 0.1 % (0-2.5); EOSINOPHIL# 0.5 X10e3 (0-0.7); EOSINOPHIL% 3.6 % (0.0-7.0); HEMATOCRIT 33.9 % (38.0-50.0); HEMOGLOBIN 11.4 gm/dL (13.0-16.0); LYMPHOCYTE# 0.8 X10e3 (1.0-3.5); LYMPHOCYTE% 5.5 % (17.0-45.0); MEAN CELL VOLUME 87.8 FL (83-96); MEAN CORPUSCULAR HEMOGLOBIN 29.7 PG (28-34); MEAN CORPUSCULAR HGB CONC 33.8 g/dL (30-36); MEAN PLATELET VOLUME 9.1 FL (6.5-11.5); MONOCYTE# 0.2 X10e3 (0-1.0); NEUTROPHIL# 13.5 X10e3 (1.5-7.1); NEUTROPHIL% 89.8 % (40-75); RED BLOOD COUNT 3.86 X10e (3.90-5.60); RED CELL DISTRIBUTION WIDTH 13.2 % (11.0-15.5)
[2017-02-24 20:07] LABS: ARTERIAL BLD GAS O2 SATURATION 99.9 % (90.0-100.0); ARTERIAL BLOOD GAS CARBOXY HB 0.3 %sat (0.0-9.0); ARTERIAL BLOOD GAS HCO3 19.5 mmol/L; ARTERIAL BLOOD GAS MET HB 0.4 %sat (0.0-2.0); ARTERIAL BLOOD GAS PCO2 33.6 mmHg (35.0-45.0); ARTERIAL BLOOD GAS pH 7.372 (7.350-7.450)
[2017-02-24 20:09] LABS: DIFF IND YES; PLATELET COUNT 47 X10e3 (140-420)
[2017-02-24 20:14] LABS: PLATELET ESTIMATE DECREASED (NORMAL)
[2017-02-24 20:20] LABS: ARTERIAL BLOOD GAS ART SITE RIGHT FEMORAL; ARTERIAL BLOOD GAS DELIVERY VENT; ARTERIAL BLOOD GAS VENT MODE A/C; ARTERIAL DRAW? YES
[2017-02-24 20:24] LABS: ALBUMIN SERUM 1.6 g/dL (3.5-5.0); BILIRUBIN,TOTAL 4.7 mg/dL (0.2-2.0); BUN/CREATININE RATIO 17.69; CALCIUM SERUM 6.9 mg/dL (8.4-10.2); CREATININE SERUM 1.3 mg/dL (0.6-1.4); GLOM FILT RATE Estimated 76.4 mL/min (>60); POTASSIUM 3.5 mmol/L (3.5-5.1); PROTEIN TOTAL SERUM 4.6 g/dL (6.0-8.3)
[2017-02-24 20:53] LABS: URINE SOURCE CLEAN CATCH
[2017-02-24 21:03] LABS: URINE APPEARANCE TURBID; URINE BLOOD 3+ (NEG); URINE COLOR DK YELLOW; URINE GLUCOSE NEG (NEG); URINE KETONE NEG (NEG); URINE LEUKOCYTE ESTERASE 2+ (NEG); URINE NITRATE POS (NEG); URINE PROTEIN TRACE (NEG); URINE SPECIFIC GRAVITY 1.022 (1.003-1.035)
[2017-02-24 21:09] LABS: CULTURE INDICATED? YES; URINE SQUAMOUS EPITHELIAL CELL MOD /[HPF]
[2017-02-24 21:21] LABS: U HYALINE CASTS AUWI 0-2 /[LPF]; URINE BACTERIA AUWI 2+ (NEGATIVE)
[2017-02-24 21:24] LABS: AMPHETAMINE POS (NEG); BARBITURATES NEG (NEG); BENZODIAZEPINES POS (NEG); COCAINE NEG (NEG); MARIJUANA NEG (NEG); OPIATES POS (NEG); TRICYCLIC ANTIDEPRESSANTS POS (NEG); U METHADONE NEG (NEG)
[2017-02-25 02:49] LABS: HEMATOCRIT 36.2 % (38.0-50.0); HEMOGLOBIN 11.8 gm/dL (13.0-16.0); MEAN CELL VOLUME 89.4 FL (83-96); MEAN CORPUSCULAR HEMOGLOBIN 29.2 PG (28-34); MEAN CORPUSCULAR HGB CONC 32.7 g/dL (30-36); MEAN PLATELET VOLUME 9.8 FL (6.5-11.5); RED BLOOD COUNT 4.05 X10e (3.90-5.60); RED CELL DISTRIBUTION WIDTH 13.8 % (11.0-15.5)
[2017-02-25 02:50] LABS: WHITE BLOOD COUNT 28.3 X10e3 (4.0-10.5)
[2017-02-25 03:22] LABS: CK TOTAL 20 IU/L (36-174)
[2017-02-25 03:23] LABS: ALBUMIN SERUM 1.7 g/dL (3.5-5.0); BILIRUBIN,TOTAL 5.2 mg/dL (0.2-2.0); BUN/CREATININE RATIO 15.62; CREATININE SERUM 1.6 mg/dL (0.6-1.4); GLOM FILT RATE Estimated 59.4 mL/min (>60); POTASSIUM 3.6 mmol/L (3.5-5.1); PROTEIN TOTAL SERUM 4.8 g/dL (6.0-8.3)
[2017-02-25 05:37] LABS: ARTERIAL BLOOD GAS PCO2 37.1 mmHg (35.0-45.0); ARTERIAL BLOOD GAS pH 7.293 (7.350-7.450)
[2017-02-25 05:38] LABS: ARTERIAL BLD GAS O2 SATURATION 99.4 % (90.0-100.0)
[2017-02-25 05:39] LABS: ARTERIAL BLOOD GAS ALLEN TEST NORMAL; ARTERIAL BLOOD GAS ART SITE LEFT RADIAL; ARTERIAL BLOOD GAS DELIVERY VENT; ARTERIAL BLOOD GAS VENT MODE AC; ARTERIAL DRAW? YES
[2017-02-25 07:56] LABS: CK TOTAL 15 IU/L (36-174)
[2017-02-25 15:41] LABS: BUN/CREATININE RATIO 21.53; CALCIUM SERUM 7.4 mg/dL (8.4-10.2); CREATININE SERUM 1.3 mg/dL (0.6-1.4); GLOM FILT RATE Estimated 76.4 mL/min (>60); POTASSIUM 3.9 mmol/L (3.5-5.1)
== END 2017-02-25 18:00 | DRG 871 ==
LOC: CED 13:53 → CICCU2 18:20
PROVIDERS: Emergency Medicine; Family Medicine; Internal Medicine; Internal Medicine Nephrology
PROC: 0BH17EZ Insertion of Endotracheal Airway into Trachea, Via Natural or Artificial Opening (ICD-10-PCS; principal; 2017-02-24)
PROC: 5A1935Z Respiratory Ventilation, Less than 24 Consecutive Hours (ICD-10-PCS; 2017-02-24)
PROC: 05HM33Z Insertion of Infusion Device into Right Internal Jugular Vein, Percutaneous Approach (ICD-10-PCS; 2017-02-24)
PROC: B543ZZA Ultrasonography of Right Jugular Veins, Guidance (ICD-10-PCS; 2017-02-24)
DX: A41.9 Sepsis, unspecified organism (principal); R65.21 Severe sepsis with septic shock; I26.90 Septic pulmonary embolism without acute cor pulmonale; J96.00 Acute respiratory failure, unspecified whether with hypoxia or hypercapnia; G93.41 Metabolic encephalopathy; N17.0 Acute kidney failure with tubular necrosis; I33.0 Acute and subacute infective endocarditis; E87.2 Acidosis; R74.9 Abnormal serum enzyme level, unspecified; I10 Essential (primary) hypertension; F41.9 Anxiety disorder, unspecified; F17.210 Nicotine dependence, cigarettes, uncomplicated; I27.2 Other secondary pulmonary hypertension; I08.1 Rheumatic disorders of both mitral and tricuspid valves; F11.10 Opioid abuse, uncomplicated
CPT/HCPCS: 31500; 36600; 70450; 71010; 71250; 72128; 72131; 72192; 74176; 76705; 80048; 80053; 80076; 80307; 81003; 82150; 82550; 82803; 83605; 83690; 84484; 85025; 85027; 85652; 86140; 86308; 87040; 87077; 87086; 87186; 87804; 87806; 93005; 93306; 94002; 94003; 94640; 94760; 96361; 96374; 99291; 99292; C9113; J1580; J1720; J2250; J2370; J2405; J2543; J3370; J7060

== ENCOUNTER 2017-08-08 22:45 | Emergency (ER) | payer OTHER ==
[~2017-08-08] VITALS: Ht 185.4 cm; Wt 65.0 kg
--- NOTE | ~2017-08-08 | EKG ---
PATIENT: JAYDEN STEPHENS UNIT #: [id number] Ventricular Rate: 150 BPM Atrial Rate: 150 BPM P-R Interval: 112 ms QRS Duration: 88 ms Q-T Interval: 324 ms QTC Calculation(Bezet): 511 ms P [place]: 44 degrees Calculated R [place]: 91 degrees Calculated T [place]: 68 degrees Diagnosis Line: Sinus tachycardia Diagnosis Line: Rightward axis Diagnosis Line: Nonspecific ST and T wave abnormality Diagnosis Line: Abnormal ECG Diagnosis Line: When compared with ECG of 24-FEB-2017 20:38, Diagnosis Line: Nonspecific T wave abnormality no longer evident Diagnosis Line: in Inferior leads Diagnosis Line: Nonspecific T wave abnormality now evident in Diagnosis Line: Anterior leads Diagnosis Line: Confirmed by MOJGAN GLORIA MD ([id number]) on 08/09/2017 Diagnosis Line: 3:46:58 PM INTERPRETING MD: FAIZAN JOINER
--- NOTE | ~2017-08-08 | CT16 ---
[facility] A Service of [facility] RADIOLOGY TEXT RESULTS PATIENT: JAYDEN STEPHENS LOCATION: [facility] : [birth year] UNIT #: [id number] AGE: [address]: Jim Denney MD SEX: M ORDER DR: [id number] [facility] [address] [place], [place] [address] [id number] E MR#: [id number] Acc #: [id number] NAME: JAYDEN STEPHENS : 1990 SEX: M STUDY DATE/TIME: 08/09/2017 1:05 UNIT: [facility] ROOM: STUDY DESCRIPTION: CT Angio Chest for PE Attending Physician: Jim Denney M.D. Ordering Physician: Jim Denney M.D. Primary Care Physician: Manoj Varela M.D. MEDICAL IMAGING REPORT This report is preliminary unless electronic signature is present EXAM CT chest with contrast, pulmonary arteriography protocol, 08/09/2017 HISTORY 27-year-old male in the ED complaining of new onset chest pain and shortness of air today. He has a history of IV drug abuse, endocarditis and septic pulmonary emboli and is status post tricuspid valve surgery February 2017. TECHNIQUE CT examination of the chest with IV contrast using pulmonary arteriography protocol. CTA MIP images of the pulmonary arteries were reformatted. This CT exam was performed with one or more of the following radiation dose reduction techniques: automatic exposure control, adjustment of mA and/or kV according to patient size, and iterative reconstruction. FINDINGS No pulmonary embolism is demonstrated. Thoracic aorta is normal in caliber with no aneurysm or dissection. Mild scattered multifocal pulmonary parenchymal scarring in the mid and upper lungs. Complete resolution of previously demonstrated cavitary nodular opacities. Complete resolution of bilateral pleural effusions. The lungs are clear today. Substernal enhancing fluid collection present on the previous study of 03/06/2017 has mostly resolved, although there is some persistent soft tissue thickening within the upper retrosternal soft tissues, and there are a few surgical clips behind the upper sternum. The median sternotomy is ununited. [facility] A Service of [facility] RADIOLOGY TEXT RESULTS PATIENT: JAYDEN STEPHENS [id number] [birth year] UNIT #: [id number] AGE: [address]: Jim Denney MD SEX: M ORDER DR: Evidence of significantly elevated right heart pressures with right heart chamber dilatation and marked deviation of the atrial septum from right to left and reflux of IV contrast into distended hepatic veins and upper abdominal IVC. Moderately severe hepatomegaly may be on the basis of congestive hepatopathy. IMPRESSION 1. No evidence of pulmonary embolism or additional acute vascular abnormality within the chest. 2. Mild multifocal pulmonary scarring as noted above. No acute pulmonary infiltrate or pleural effusion. Marked improvement since 03/06/2017. 3. Residual retrosternal soft tissue thickening where enhancing fluid collection was noted on the previous study. Ununited median sternotomy. 4. Evidence of significantly elevated right heart pressure as noted above. Hepatomegaly. Dictated by... Gomez Davis M.D. THIS IS AN ELECTRONICALLY VERIFIED REPORT Gomez Davis M.D. at 08/10/2017 6:02 AM LARRY/jackelyn TD: 08/10/2017 01:49 JOB #: [id number] MEDICAL IMAGING REPORT Page 1 of 1 COPY
--- NOTE | ~2017-08-08 | CR72 ---
[facility] A Service of [facility] RADIOLOGY TEXT RESULTS PATIENT: JAYDEN STEPHENS LOCATION: [facility] : [birth year] UNIT #: [id number] AGE: [address]: Jim Denney MD SEX: M ORDER DR: [id number] [facility] [address] [facility]. [place], [place] [address] [id number] E MR#: [id number] Acc #: [id number] NAME: JAYDEN STEPHENS : 1990 SEX: M STUDY DATE/TIME: 08/08/2017 23:20 UNIT: [facility] ROOM: STUDY DESCRIPTION: CR Chest Single View Portable Attending Physician: Jim Denney M.D. Ordering Physician: Jim Denney M.D. Primary Care Physician: Manoj Varela M.D. MEDICAL IMAGING REPORT This report is preliminary unless electronic signature is present EXAM Chest x-ray, 08/08/2017 HISTORY 27-year-old male in the ED complaining of new onset shortness of air and rapid heart rate today. Hospitalized earlier this year with infectious endocarditis with septic pulmonary emboli. Subsequent heart valve surgery. TECHNIQUE AP portable chest x-ray. FINDING Median sternotomy related to prior heart valve surgery. Heart size and pulmonary vascularity are within normal limits. Extensive pulmonary nodularity related to septic pulmonary emboli and small bilateral pleural effusions present on the previous study of 03/14/2017 now resolved. Minimal scattered reticulonodular changes within the lungs most likely post inflammatory scarring. No airspace consolidation or pleural effusion today. IMPRESSION No definite active disease. Median sternotomy. Dictated by... Gomez Davis M.D. THIS IS AN ELECTRONICALLY VERIFIED REPORT Gomez Davis M.D. at 08/10/2017 6:02 AM LARRY/jackelyn [facility] A Service of [facility] RADIOLOGY TEXT RESULTS PATIENT: JAYDEN STEPHENS LOCATION: [facility] : [birth year] UNIT #: [id number] AGE: [address]: Jim Denney MD SEX: M ORDER DR: TD: 08/10/2017 00:24 JOB #: [id number] MEDICAL IMAGING REPORT Page 1 of 1 COPY
[~2017-08-08 22:45] MED LIST: ATIVAN0.5 MG PO
[2017-08-08 23:16] LABS: BASOPHIL# 0.1 X10e3 (0-0.3); BASOPHIL% 0.5 % (0-2.5); EOSINOPHIL# 0.1 X10e3 (0-0.7); EOSINOPHIL% 0.5 % (0.0-7.0); HEMATOCRIT 49.1 % (38.0-50.0); HEMOGLOBIN 16.4 gm/dL (13.0-16.0); LYMPHOCYTE% 35.7 % (17.0-45.0); MEAN CELL VOLUME 90.2 FL (83-96); MEAN CORPUSCULAR HEMOGLOBIN 30.2 PG (28-34); MEAN CORPUSCULAR HGB CONC 33.5 g/dL (30-36); MEAN PLATELET VOLUME 7.3 FL (6.5-11.5); MONOCYTE# 1.1 X10e3 (0-1.0); MONOCYTE% 6.4 % (3.0-12.0); NEUTROPHIL# 9.6 X10e3 (1.5-7.1); NEUTROPHIL% 56.9 % (40-75); PLATELET COUNT 239 X10e3 (140-420); RED BLOOD COUNT 5.44 X10e (3.90-5.60); RED CELL DISTRIBUTION WIDTH 15.5 % (11.0-15.5); WHITE BLOOD COUNT 16.9 X10e3 (4.0-10.5)
[2017-08-08 23:17] LABS: DIFF IND YES
[2017-08-08 23:19] LABS: POC - CKMB 1.6 ng/mL (0.0-7.9); POC - TROPONIN <0.05 ng/mL (<=0.05)
[2017-08-08 23:28] LABS: INR 1.1; PARTIAL THROMBOPLASTIN TIME 25.5 SECONDS (23.5-31.3); PROTHROMBIN TIME (PATIENT) 11.9 SECONDS (10.0-11.7)
[2017-08-08 23:36] LABS: ALBUMIN SERUM 5.5 g/dL (3.5-5.0); BILIRUBIN, DIRECT 0.2 mg/dL (0.0-0.2); BILIRUBIN,INDIRECT 0.5 mg/dL (0.0-0.9); BILIRUBIN,TOTAL 0.7 mg/dL (0.2-2.0); BUN/CREATININE RATIO 9.09; CALCIUM SERUM 9.3 mg/dL (8.4-10.2); CREATININE SERUM 1.1 mg/dL (0.6-1.4); GLOM FILT RATE Estimated 92.8 mL/min (>60); PLATELET ESTIMATE NORMAL (NORMAL); POTASSIUM 3.5 mmol/L (3.5-5.1); PROTEIN TOTAL SERUM 8.5 g/dL (6.0-8.3)
== END 2017-08-09 02:38 | disposition short-term general hospital (02) ==
LOC: CED 22:45
PROVIDERS: Emergency Medicine
DX: R00.0 Tachycardia, unspecified (principal); F41.0 Panic disorder [episodic paroxysmal anxiety]; F17.200 Nicotine dependence, unspecified, uncomplicated; Z79.899 Other long term (current) drug therapy
CPT/HCPCS: 36415; 71010; 71275; 80048; 80076; 82553; 84484; 85025; 85610; 85730; 93005; 96361; 96374; 96375; 96376; 99285; G0480; J2060; J3490; Q9967